=== PATIENT | female | born 1965 | race Caucasian/White ===

== ENCOUNTER 2019-02-25 21:43 | Emergency (ER) | payer OTHER ==
[~2019-02-25] VITALS: Ht 162.6 cm; Wt 84.1 kg
[2019-02-25 21:59] VITALS: Ht 162.6 cm; Wt 84.1 kg
[2019-02-25] MEDS ORDERED: PRINIVIL20 MG PO (22:00)
[2019-02-25] MEDS ORDERED: OMEPRAZOLE20 M1 PO (22:00)
[2019-02-25] MEDS ORDERED: VALIUM 2 MG TAB2 MG PO (22:30)
[2019-02-25] MEDS ORDERED: EC-NAPROSYN500 MG PO (22:30)
[2019-02-26 01:10] VITALS: BP 138/89
== END 2019-02-26 01:04 | disposition home or self-care (01) ==
LOC: D.ER 21:43
DX: S39.012A Strain of muscle, fascia and tendon of lower back, initial encounter (principal); X58.XXXA Exposure to other specified factors, initial encounter; Y93.89 Activity, other specified; Y92.89 Other specified places as the place of occurrence of the external cause; M54.31 Sciatica, right side